=== PATIENT | female | born 1965 | race African-American/Black ===

== ENCOUNTER 2018-04-30 20:51 | Emergency (ER) | payer SELFPAY ==
[~2018-04-30] VITALS: Ht 160 cm; Wt 55.0 kg
[2018-04-30] MEDS ORDERED: IPRATROPIUM BROMIDE (0.02%) 0.5MG/2.5ML NEB HHN STA (21:56)
[2018-04-30] MEDS ORDERED: ALBUTEROL (0.083%) 2.5MG/3ML NEB HHN STA (21:56)
[2018-04-30] MEDS ORDERED: METHYLPREDNISOLONE SOD SUCC 125 MG/2 ML VIAL IV STA (21:56)
[2018-04-30] MEDS ORDERED: MAGNESIUM 2 G PREMIX 50 ML IV STA (21:56)
[2018-04-30 22:57] LABS: BASOPHILS % 0.6 % (0.0-2.0); HEMATOCRIT. 39.6 % (36.0-48.0); HEMOGLOBIN. 13.2 g/dL (12.0-16.0); LYMPHOCYTES % 41.6 % (20.0-50.0); MEAN CORPUSCULAR HEMOGLOBIN 30.2 pg (28.0-32.0); MEAN CORPUSCULAR VOLUME 90.7 fL (81.0-99.0); MEAN PLATELET VOLUME 8.3 fl (7.4-10.4); MONOCYTES % 6.3 % (2.0-8.0); NEUTROPHILS % 48.5 % (40.0-76.0); PLATELET 248 x1000/uL (130-400); RED BLOOD CELL COUNT 4.37 mill/uL (4.2-5.4)
[2018-04-30 23:03] LABS: CHLORIDE 107 mEq/L (98-107)
[2018-04-30 23:08] LABS: D-DIMER 0.22 mg/L FEU (<0.50); PROTHROMBIN TIME 10.1 sec (9.1-11.1)
[2018-04-30 23:09] LABS: HCG SCREEN NEGATIVE
[2018-05-01 00:26] VITALS: BP 121/77
== END 2018-05-01 00:25 | disposition home or self-care (01) ==
LOC: ER 20:51
DX: J40 Bronchitis, not specified as acute or chronic (principal); J45.909 Unspecified asthma, uncomplicated; K21.9 Gastro-esophageal reflux disease without esophagitis
CPT/HCPCS: 36415; 71045; 80053; 83605; 84484; 84703; 85025; 85379; 85610; 93005; 96365; 96375; 99285; J2930; J3475; J7611

== ENCOUNTER 2024-12-14 04:13 | Emergency (ER) | payer MEDICAID, OTHER ==
[~2024-12-14] VITALS: Ht 162.6 cm; Wt 58.0 kg
[2024-12-14 04:30] VITALS: BP_DIAS 59; TEMP 36.9; O2SAT 97
[2024-12-14] MEDS ORDERED: METH-653 MT (05:36)
[2024-12-14 06:00] VITALS: BP_SYST 105; PULSE 64; RESP 16; O2SAT 100
[2024-12-14] MEDS: ACETAMINOPHEN 325MG TABLET PO ONE (06:03)
== END 2024-12-14 06:17 | disposition home or self-care (01) ==
LOC: ER 04:13
DX: M54.50 Low back pain, unspecified (principal); J45.909 Unspecified asthma, uncomplicated; F12.90 Cannabis use, unspecified, uncomplicated; Z79.899 Other long term (current) drug therapy
CPT/HCPCS: 99283